=== PATIENT | male | born 1955 | race Caucasian/White ===

== ENCOUNTER 2017-01-03 16:37 | Inpatient (IN) | payer OTHER ==
[~2017-01-03] VITALS: Ht 182.9 cm; Wt 80.1 kg
[2017-01-03] MEDS ORDERED: SODIUM CHLORIDE 0.9% 1,000 ML IVB ONE (18:23)
[2017-01-03 18:41] LABS: Basophils # (auto) 0.1 uL; Basophils % (auto) 0.6 % (0.0-2.0); Eosinophils # (auto) 0.4 uL; Eosinophils % (auto) 4.5 % (0.0-7.0); Hematocrit 48.4 % (41.0-53.0); Hemoglobin 16.2 g/dL (13.5-17.5); Lymphocytes # (auto) 3.3 uL; Lymphocytes % (auto) 33.5 % (10.0-50.0); Mean Corpuscular Hemoglobin 29.3 pg (28.0-32.0); Mean Corpuscular Hgb Conc. 33.4 g/dL (32.0-36.0); Mean Corpuscular Volume 87.8 fL (80.0-100.0); Mean Platelet Volume 8.9 fL (7.4-10.4); Monocytes # (auto) 0.9 uL; Monocytes % (auto) 8.7 % (0.0-12.0); Neutrophils # (auto) 5.2 uL; Neutrophils % (auto) 52.7 % (37.0-80.0); Platelet Count (auto) 293 10^3/uL (140-450); Red Cell Distribution Width 13.9 % (11.6-16.0); White Blood Cell 9.8 10^3/uL (4.4-10.8)
[2017-01-03 18:49] LABS: Albumin 3.9 g/dL (3.4-5.0); Anion Gap 11 (5-15); Aspartate Aminotransferase 20 U/L (15-37); BUN/Creatinine Ratio 17.8; Blood Urea Nitrogen 21 mg/dL (7-18); Calcium 9.5 mg/dL (8.5-10.1); Carbon Dioxide 24 mmol/L (21-32); Chloride 107 mmol/L (98-107); GFR African American 80 mL/min; GFR Non-African American 66 mL/min; Glucose 172 mg/dL (74-106); Magnesium 2.3 mg/dL (1.6-2.6); Potassium 3.8 mmol/L (3.5-5.1); Sodium 142 mmol/L (136-145)
[2017-01-03 18:54] LABS: Alkaline Phosphatase 70 U/L (45-117); Bilirubin, Total 0.9 mg/dL (0.2-1.0); Total Protein 7.6 g/dL (6.4-8.2)
[2017-01-03 18:59] LABS: INR 0.97 (0.9-1.15); Partial Thromboplastin Time 26.8 sec (22.64-33.71); Prothrombin Time 10.5 sec (9.37-12.3)
[2017-01-03] MEDS ORDERED: METF-312 PO (22:39)
[2017-01-03] MEDS ORDERED: LOSA50TA6 PO (22:39)
[2017-01-03] MEDS ORDERED: LORazepam 2MG/ML-1ML VIAL IV ONE (22:45)
[2017-01-03] MEDS ORDERED: LOSARTAN POTASSIUM 50 MG TAB PO ONE (22:45)
[2017-01-03] MEDS ORDERED: DEXTROSE (50%) 50ML SYRG IV PRN (22:45)
[2017-01-03] MEDS ORDERED: MORPHINE SULF INJ 2 MG/ML SYRINGE 1ML IV PRN (22:45)
[2017-01-03] MEDS ORDERED: NITROGLYCERIN 0.4 MG SL TAB SL PRN (22:45)
[2017-01-03] MEDS ORDERED: ASPirin 81 mg TAB PO ONE (22:45)
[2017-01-04] VITALS (8 sets, daily range): BP systolic 142–188; BP diastolic 84–93
[2017-01-04] MEDS: ACCU-CHEK COMFORT CURVE STRIP VI SCH ×4 (05:49→21:48)
[2017-01-04] MEDS: InsuLIN REG 1unit/0.01ml Soln (100units/ml) SC SCH ×4 (05:49→21:49)
[2017-01-04] MEDS ORDERED: LABETALOL HCL 5 MG/ML 4ML SYRINGE IV PRN (06:15)
[2017-01-04 06:26] LABS: Cholesterol 149 mg/dL (< 200); HDL Cholesterol 22 mg/dL (40-59); LDL Cholesterol 102 mg/dL (< 100); Triglycerides 204 mg/dL (< 150)
[2017-01-04] MEDS ORDERED: hydrALAZINE HCL 20 MG/ML VL ONE (06:37)
[2017-01-04] MEDS ORDERED: hydrALAZINE HCL 20 MG/ML VL IV PRN (06:45)
[2017-01-04] MEDS ORDERED: ASPirin 81 mg TAB PO SCH ×2 (10:00→11:30)
[2017-01-04] MEDS ORDERED: LORazepam 2MG/ML-1ML VIAL IV ONE (10:45)
[2017-01-04] MEDS: LOSARTAN POTASSIUM 50 MG TAB PO SCH (10:51)
[2017-01-04] MEDS ORDERED: amLODIPine BESYLATE 5 MG TAB PO ONE (12:00)
[2017-01-04] MEDS ORDERED: IOHEXOL 350 MG/ML 100ML IJ ONE (15:53)
[2017-01-04] MEDS: ATORVASTATIN 20 MG TAB PO SCH (21:48)
[2017-01-04] MEDS ORDERED: ATORVASTATIN 20 MG TAB PO SCH (22:00)
[2017-01-05] MEDS: ACCU-CHEK COMFORT CURVE STRIP VI SCH ×4 (04:54→21:48)
[2017-01-05] MEDS: InsuLIN REG 1unit/0.01ml Soln (100units/ml) SC SCH ×4 (04:54→21:48)
[2017-01-05 05:02] VITALS: BP 172/74
[2017-01-05 09:00] VITALS: BP 148/88
[2017-01-05] MEDS: amLODIPine BESYLATE 5 MG TAB PO SCH (09:14)
[2017-01-05] MEDS: LOSARTAN POTASSIUM 50 MG TAB PO SCH (09:14)
[2017-01-05] MEDS ORDERED: LIDOCAINE VISCOUS 2% 15ML UD PO ONE (09:45)
[2017-01-05] MEDS ORDERED: MIDAZOLAM HCL 5 MG/ML-1ML VIAL IV ONE (09:45)
[2017-01-05] MEDS ORDERED: fentaNYL CITRATE 100 MCG/2 ML VL IV ONE (09:45)
[2017-01-05] MEDS ORDERED: MIDAZOLAM HCL 1MG/1ML-2 ML VIAL ONE (09:51)
[2017-01-05] MEDS: ASPirin 81 mg TAB PO SCH (09:53)
[2017-01-05] MEDS ORDERED: APIX5TAB OR (14:14)
[2017-01-05 17:00] VITALS: BP 146/92
[2017-01-05 19:30] VITALS: BP 135/71
[2017-01-05 21:34] VITALS: BP 135/71
[2017-01-05] MEDS: ATORVASTATIN 20 MG TAB PO SCH (21:47)
[2017-01-06 04:49] VITALS: BP 154/80
[2017-01-06] MEDS: InsuLIN REG 1unit/0.01ml Soln (100units/ml) SC SCH ×2 (04:56→11:30)
[2017-01-06] MEDS: ACCU-CHEK COMFORT CURVE STRIP VI SCH ×2 (04:57→11:30)
[2017-01-06 09:00] VITALS: BP 165/95
[2017-01-06] MEDS: LOSARTAN POTASSIUM 50 MG TAB PO SCH (10:30)
[2017-01-06] MEDS: ASPirin 81 mg TAB PO SCH (10:30)
[2017-01-06] MEDS: amLODIPine BESYLATE 5 MG TAB PO SCH (10:31)
[2017-01-06 13:00] VITALS: BP 140/92
[2017-01-06 13:44] VITALS: BP 165/95
== END 2017-01-06 16:40 | DRG 65 ==
LOC: ER 16:43 → TELE-WESTW 16:44
PROVIDERS: ADMIT Internal Medicine; ATTEND Internal Medicine
PROC: B246ZZ4 Ultrasonography of Right and Left Heart, Transesophageal (ICD-10-PCS; principal; 2017-01-05)
DX: I63.413 Cerebral infarction due to embolism of bilateral middle cerebral arteries (principal); I31.3 Pericardial effusion (noninflammatory); G81.91 Hemiplegia, unspecified affecting right dominant side; E78.5 Hyperlipidemia, unspecified; E11.9 Type 2 diabetes mellitus without complications; R29.716 NIHSS score 16; F17.210 Nicotine dependence, cigarettes, uncomplicated; F41.9 Anxiety disorder, unspecified; I10 Essential (primary) hypertension; I34.0 Nonrheumatic mitral (valve) insufficiency; R47.01 Aphasia; Z82.49 Family history of ischemic heart disease and other diseases of the circulatory system; Z86.73 Personal history of transient ischemic attack (TIA), and cerebral infarction without residual deficits
CPT/HCPCS: 36415; 70450; 70496; 70498; 70551; 71010; 80053; 80061; 82962; 83036; 83605; 83735; 84484; 85025; 85610; 85730; 87040; 93005; 93306; 93312; 93886; 97001; J1815; J2250; J3490

== ENCOUNTER 2018-10-10 18:41 | Emergency (ER) | payer OTHER ==
[~2018-10-10] VITALS: Ht 182.9 cm; Wt 81.6 kg
[~2018-10-10 18:41] MED LIST: APIX5TAB OR; LOSA-46 PO; METF-370 PO
[2018-10-10 20:10] LABS: Basophils # (auto) 0.1 uL; Basophils % (auto) 0.9 % (0.0-2.0); Eosinophils # (auto) 0.1 uL; Eosinophils % (auto) 1.4 % (0.0-7.0); Hematocrit 45.2 % (41.0-53.0); Hemoglobin 15.5 g/dL (13.5-17.5); Lymphocytes # (auto) 1.6 uL; Lymphocytes % (auto) 15.7 % (10.0-50.0); Mean Corpuscular Hemoglobin 30.4 pg (28.0-32.0); Mean Corpuscular Hgb Conc. 34.3 g/dL (32.0-36.0); Mean Corpuscular Volume 88.6 fL (80.0-100.0); Monocytes # (auto) 0.4 uL; Monocytes % (auto) 4.5 % (0.0-12.0); Neutrophils # (auto) 7.8 uL; Neutrophils % (auto) 77.5 % (37.0-80.0); Nucleated Red Blood Cells % 0.1 %; Platelet Count (auto) 214 10^3/uL (140-450); Red Cell Distribution Width 13.6 % (11.8-14.3)
[2018-10-10 20:20] LABS: Albumin 4.1 g/dL (3.4-5.0); BUN/Creatinine Ratio 25.9; Calcium 8.7 mg/dL (8.5-10.1); Potassium 4.2 mmol/L (3.5-5.1)
[2018-10-10 20:23] LABS: Bilirubin, Total 0.8 mg/dL (0.2-1.0); Total Protein 7.7 g/dL (6.4-8.2)
[2018-10-10 20:34] LABS: INR 0.98 (0.9-1.15); Prothrombin Time 10.5 sec (9.27-12.13)
[2018-10-10 23:00] VITALS: BP 133/70
== END 2018-10-11 01:54 | disposition home or self-care (01) ==
LOC: ER 18:41 → EDBD 18:41 → ER 10-11 01:54
DX: G40.909 Epilepsy, unspecified, not intractable, without status epilepticus (principal); E86.0 Dehydration; E11.9 Type 2 diabetes mellitus without complications; I10 Essential (primary) hypertension; Z86.73 Personal history of transient ischemic attack (TIA), and cerebral infarction without residual deficits
CPT/HCPCS: 36415; 70450; 71045; 80053; 83880; 84484; 85025; 85379; 85610; 85730; 93005